=== PATIENT | male | born 1970 | race Caucasian/White ===

== ENCOUNTER 2025-04-11 18:36 | Emergency (ER) | payer OTHER ==
[~2025-04-11] VITALS: Ht 172.7 cm; Wt 88.6 kg
[~2025-04-11 18:36] MED LIST: DULO20CA23 PO; PRAV-59 PO; TRAZ-257 PO
[2025-04-11 18:40] VITALS: BP 114/75; PULSE 82; RESP 18; TEMP 98.4; O2SAT 99
[2025-04-11 19:15] LABS: PLATELET COUNT (AUTO) 188 K/uL (150-450); RED BLOOD CELL COUNT(AUTO) 4.66 MIL/uL (4.50-5.90); RED CELL DISTRIBUTION WIDTH 14.3 % (11.5-14.5); WHITE BLOOD COUNT (AUTO) 7.1 K/uL (4.5-11.0)
[2025-04-11 19:25] LABS: CALCIUM, TOTAL 8.5 mg/dL (8.8-10.5); CREATININE 0.86 mg/dL (0.60-1.30); GLOMERULAR FILTR. RATE CALC > 60 mL/min (>60); GLUCOSE,RANDOM 106 mg/dL (70-110); SODIUM SERUM 141 mmol/L (136-145); UREA NITROGEN, BLOOD 11 mg/dL (7-18)
[2025-04-11] MEDS ORDERED: FLUCONAZOLE 150 MG TABLET PO ONE (20:45)
== END 2025-04-11 20:10 | disposition home or self-care (01) ==
LOC: EMS 18:37
DX: F10.239 Alcohol dependence with withdrawal, unspecified (principal); E11.9 Type 2 diabetes mellitus without complications; F41.9 Anxiety disorder, unspecified; F14.90 Cocaine use, unspecified, uncomplicated; F15.90 Other stimulant use, unspecified, uncomplicated; Z98.890 Other specified postprocedural states; Z91.030 Bee allergy status; Z79.899 Other long term (current) drug therapy; Y90.9 Presence of alcohol in blood, level not specified
CPT/HCPCS: 99283; 80048; 85025; 36415; G0480